=== PATIENT | female | born 1975 | race Caucasian/White ===

== ENCOUNTER → 2020-12-30 14:38 | Outpatient (CLI) | payer OTHER, SELFPAY ==
[2021-01-03 12:37] LABS: HPV APTIMA, High Risk Negative (Negative)
== END ==
PROVIDERS: PCP Family Medicine; Visit Provider Obstetrics & Gynecology
DX: Z12.4 Encounter for screening for malignant neoplasm of cervix (principal)
CPT/HCPCS: 87624; 88175; G0145

== ENCOUNTER → 2021-03-10 08:44 | Outpatient (CLI) | payer OTHER, SELFPAY ==
[2021-03-10 10:40] LABS: Cholesterol 145 mg/dL (200); High Density Lipoprotein 59 mg/dL; Triglycerides 53 mg/dL; Very Low Density Lipoprotein 11 mg/dL (5-40)
[2021-03-12 16:10] LABS: LDL, Direct 120295 78 mg/dL (0-99)
== END ==
PROVIDERS: PCP Family Medicine; Referring Provider Dermatology; Visit Provider Dermatology
DX: H02.64 Xanthelasma of left upper eyelid (principal); H02.61 Xanthelasma of right upper eyelid; H02.65 Xanthelasma of left lower eyelid; H02.62 Xanthelasma of right lower eyelid
CPT/HCPCS: 36415; 80061; 83721

== ENCOUNTER → 2021-04-09 08:27 | Outpatient (CLI) | payer OTHER, SELFPAY ==
[2021-04-09 10:33] LABS: Glucose 119 mg/dL (74-106); Thyroid Stim Hormone (TSH) 1.93 uIU/mL (0.358-3.74)
== END ==
PROVIDERS: PCP Family Medicine; Referring Provider Family Medicine; Visit Provider Family Medicine
DX: Z13.1 Encounter for screening for diabetes mellitus (principal); Z13.29 Encounter for screening for other suspected endocrine disorder
CPT/HCPCS: 36415; 82947; 84443

== ENCOUNTER 2024-10-25 07:14 | Day surgery (SDC) | payer OTHER, SELFPAY ==
[2024-10-25] VITALS (9 sets, daily range): BP systolic 103–124; BP diastolic 69–80; PULSE 60–83; RESP 16; TEMP 35.9–36.7; O2SAT 96–99; BMI 29.5
--- NOTE | 2024-10-25 07:23 | H&P.OPEN ---
[facility] - General General Date of Service: 10/25/24 HPI Narrative ZANDRA LORD, is a 49 F who presents for screening colonoscopy. Patient never had previous colonoscopy. Patient's paternal uncle diagnosed colon cancer age 64. Patient denies any chronic abdominal pain/nausea/vomiting/reflux. Patient has bowel movements daily denies any blood. 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 Smoking Status: Never smoker alcohol intake: current alcohol intake frequency: a few times a week Alcohol type: beer and wine substance use type: does not use Past Medical/Surgical History Planned Operation Planned Operative Procedure(s): COLONOSCOPY-OA Previous Hospitalizations/Surgeries HX Hospitalizations: No Any Problems With Anesthesia: No You/Your Family Experience Fever (Hyperthermia) With Anes: No Cholinesterase deficiency: No Cardiovascular Hx Hypertension: No Respiratory Hx Sleep Apnea: No Hx Respiratory Tract Infection/Cold (presently): No Do You Snore Loudly (louder than talking or can be heard): No Do You Often Feel Tired/ Fatigued/ Sleepy Dring Daytime?: No Has Anyone Observed You Stop Breathing During Sleep?: No Result (for STOP score): Negative Smoking Status: Never smoker Neurological Does patient have nerve stimulator: No Reproduction : No Allergies No Known Allergies Allergy (Verified 10/23/24 15:16) Discharge Is Pt Admitted From a [facility], or a [facility]: No After D/C, Where Do you Plan to Go: Return Home Physical Exam Const alert, oriented x3 and no apparent distress HEENT normocephalic and head/scalp atraumatic Resp normal respiratory effort Cardio regular rate GI soft to palpation and non-tender; Negative for non-distended Palpation: Negative for guarding Extremity no clubbing, cyanosis or edema Skin no rashes or lesions noted Neuro CN's II-XII intact bilaterally Psych mental status grossly normal Assessment & Plan Assessment/Plan (1) Encounter for screening for malignant neoplasm of colon: Surgery Risks - Colonoscopy I discussed with the patient the risks of the procedure: Yes Risks Include but are not Limited To: Risks include but are not limited to: Bleeding, perforation requiring further surgery, inability to complete colonoscopy requiring barium enema.
[2024-10-25 07:40] LABS: Internal QC Validated? YES +Cl - CLEAR BKGD
[2024-10-25 07:44] LABS: Pregnancy, Urine Negative Negative; Record Kit Lot#,Urine Preg 856586
--- NOTE | 2024-10-25 07:58 | PRE.ANES_ITS ---
ASA Classification* ASA Classification ASA Classification: 2 Assessment & Plan Anesthesia* Anesthesia Assessment Anesthesia Assessment: Discussed sedation and/or anesthesia options, risks, benefits, and alternatives with patient/parents/legal guardian/POA. Questions invited. The patient/parents/legal guardian/POA seems to understand and agrees to proceed with anesthesia plan. Reviewed the physical assessment, medical history, allergy history and patient home medications list prior to surgery/procedure/anesthetic and documented any changes. Performed airway and anesthesia risk assessments. Anesthesia Type Anesthesia Type: MAC Anesthesia Focused Assessment* Temperature: 98.0 F Pulse Rate: 76 Blood Pressure: 124/80 Respiratory Rate: 16 Pulse Ox: 99 Airway Assessment Mouth opens: >3 cm Mallampati Score: II Focused Labs Anesthesia Preop lab: CBC WBC 5.2 K/mm3 (4.4-11.0) 09/17/17 11:09/17/17 RBC 4.55 M/mm3 (4.2-5.4) 09/17/17 11:09/17/17 Hgb 12.4 g/dl (12.0-15.0) 09/17/17 11:09/17/17 Hct 38.2 % (37-47) 09/17/17 11:09/17/17 Plt Count 289 K/mm3 (150-450) 09/17/17 11:09/17/17 CHEMISTRY Potassium 4.3 mmol/L (3.5-5.1) 09/17/17 11:09/17/17 Sodium 141 mmol/L (136-145) 09/17/17 11:09/17/17 Magnesium 2.0 mg/dL (1.8-2.4) 09/17/17 11:09/17/17 BUN 15 mg/dL (7-18) 09/17/17 11:09/17/17 Creatinine 0.77 mg/dL (0.55-1.02) 09/17/17 11:09/17/17 Glucose 119 mg/dL (74-106) H 04/09/21 08:29 04/09/21 TSH 1.93 uIU/mL (0.358-3.74) 04/09/21 08:29 COAG Urine Test Negative Negative 10/25/24 07:25 10/25/24 Pre-Assessment Diagnosis/Proposed Procedure Planned Operative Procedure(s): COLONOSCOPY-OA Anesthesia History 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 When Was Last Pacemaker Check QUESTION #4 FULL TEXT: You/Your Family Experience fever (hyperthermia) with Anesthesia Last Oral Intake Last Oral intake: Last Oral Intake NPO since 04:15 10/25/24 07:37 Meds taken in AM with sips of No 10/25/24 07:37 water? Meds patient instructed to take am of surgery PONV PONV - civil engineering drafter: PONV - civil engineering drafter Female Yes 10/23/24 15:21 HX of Motion Sickness No 10/23/24 15:21 HX of N/V After Surgery No 10/23/24 15:21 Non-Smoker Yes 10/23/24 15:21 Duration of Surgery greater No 10/23/24 15:21 than 60 minutes Number of Risk Factors 2 10/23/24 15:21 PONV Score Moderate Risk 10/23/24 15:21 Height & Weight Height & Weight: Anesthesia: Height & Weight Height 5 ft 11 in 10/25/24 07:37 Weight: 96 kg 10/25/24 07:37 Body Mass Index (BMI) 29.5 10/25/24 07:37 Respiratory Assessment Respiratory Assessment - civil engineering drafter: Respiratory Tract Infection Hx - civil engineering drafter Hx Respiratory Tract Infection No 10/25/24 07:24 STOP Sleep Apnea STOP Sleep Apnea - civil engineering drafter: STOP Sleep Apnea - civil engineering drafter Hx Hypertension No 10/25/24 07:24 Hx Sleep Apnea No 10/25/24 07:24 CPAP BIPAP Do you snore loudly (louder No 10/25/24 07:24 than talking or can be heard Do you often feel tired/ No 10/25/24 07:24 fatigued/ sleepy during daytime? Has anyone observed you stop No 10/25/24 07:24 breathing during sleep? STOP Results Negative 10/25/24 07:35 QUESTION #5 FULL TEXT : Do you snore loudly (louder than talking or can be heard through closed doors)? 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 Specify any problems Hx of Preganancy in last 3 No 10/23/24 15:21 Months Nurse Filling Out Transfusion VCHRISTIN 10/23/24 15:21 & Questions: Date: 10/23/24 10/23/24 15:21 Time: 15:22 10/23/24 15:21 Patient unable to answer at this time (ie. 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
--- NOTE | 2024-10-25 08:30 | COLBX_PTH ---
PATIENT: ZANDRA LORD LOC: EN U#:[id number] AGE/SX: 49/F ROOM: RE10/25/[address]: Dr. Chelsie Izquierdo MD : 1975 BED: DIS: 10/25/2024 SPEC #: [id number] RECD: 10/25/24 11:15 STATUS: DANIEL REKenny #: [id number] CLEO: 10/25/24 08:[address]: Chelsie Izquierdo DEPT: SURGICAL PATHOLOGY RECD BY: Reshma Carlisle ENTERED: 10/25/24 11:54 SP TYPE: COLON BX OTHR DR: Dr. Alexandre Giraldo MD Tissues: Sigmoid colon biopsy Procedures: Surgery Specimen Level IV HEADER OPERATION: Colonoscopy with polyp biopsy PRE-OP DIAGNOSIS: Encounter for screening for malignant neoplasm of colon TISSUE SUBMITTED: Sigmoid polyp biopsy MICROSCOPIC DIAGNOSIS Sigmoid polyp, biopsy: A fragment of colonic mucosa, no pathologic diagnosis. SJ.mr 10/26/2024 MICROSCOPIC DESCRIPTION Slides are reviewed. GROSS DESCRIPTION Received in fixative is one container labeled with the patient's name and designated Sigmoid polyp biopsy. The specimen consists of one irregular fragment of light briceño soft tissue that measures 0.2 x 0.2 x 0.1 cm. The specimen is totally submitted in one cassette. 10/25/2024 TC:4 CPT:43122
--- NOTE | 2024-10-25 09:21 | OP.CCLET_ITS ---
10/25/2024 Gian Giraldo [address] [place] [address] Re : Colonoscopy procedure for Naomi Kimballholz Dear Dr. Giraldo This procedure was performed on Friday, October 25, 2024. My impressions and recommendations are as follows: Impressions : - One less than 5 mm polyp in the sigmoid colon. Biopsied. - The examination was otherwise normal on direct and retroflexion views. Recommendations : - Discharge patient to home. - Resume previous diet. - Continue present medications. - Await pathology results. - Repeat colonoscopy in 5-10 years for surveillance based on pathology results. My findings are described in the full procedure note, which is enclosed. If I can be of further assistance, please feel free to contact me at Doctor phone number(s): , Work: . Sincerely, MD Chelsie Pabon MD 10/25/2024 9:21:10 AM This report has been signed electronically.
--- NOTE | 2024-10-25 09:21 | OP.COLON_ITS ---
Patient Name: Naomi Chen Procedure Date: 10/25/2024 8:46 AM Date of : 1975 Age: 49 Procedure: Colonoscopy Indications: Screening for colorectal malignant neoplasm Providers: Chelsie Izquierdo MD Referring MD: Gian Giraldo Medicines: Monitored Anesthesia Care Patient Profile: This is a 49 year old female. Last Colonoscopy: none. The patient's first colonoscopy is today. Complications: No immediate complications. Procedure: Pre-Anesthesia Assessment: - Prior to the procedure, a History and Physical was performed, and patient medications and allergies were reviewed. The patient's tolerance of previous anesthesia was also reviewed. The risks and benefits of the procedure and the sedation options and risks were discussed with the patient. All questions were answered, and informed consent was obtained. Prior Anticoagulants: The patient has taken no anticoagulant or antiplatelet agents. ASA Grade Assessment: Per anesthesia. After reviewing the risks and benefits, the patient was deemed in satisfactory condition to undergo the procedure. After I obtained informed consent, the scope was passed under direct vision. Throughout the procedure, the patient's blood pressure, pulse, and oxygen saturations were monitored continuously. The colonoscope was introduced through the anus and advanced to the cecum, identified by the appendiceal orifice, ileocecal valve and palpation. The colonoscopy was performed without difficulty. The patient tolerated the procedure well. The quality of the bowel preparation was good. Scope In: 8:56:23 AM Scope Withdrawal Time 0 hours 13 minutes 52 seconds Scope Out: 9:17:30 AM Total Procedure Duration Time 0 hours 21 minutes 7 seconds Findings: The perianal and digital rectal examinations were normal. A less than 5 mm polyp was found in the sigmoid colon. The polyp was sessile. Biopsies were taken with a cold forceps for histology. The exam was otherwise without abnormality on direct and retroflexion views. Impression: - One less than 5 mm polyp in the sigmoid colon. Biopsied. - The examination was otherwise normal on direct and retroflexion views. Recommendation: - Discharge patient to home. - Resume previous diet. - Continue present medications. - Await pathology results. - Repeat colonoscopy in 5-10 years for surveillance based on pathology results. Procedure Code(s): --- Professional --- 52506, PT, Colonoscopy, flexible; with biopsy, single or multiple Diagnosis Code(s): --- Professional --- Z12.11, Encounter for screening for malignant neoplasm of colon D12.5, Benign neoplasm of sigmoid colon CPT copyright 2021 [employer]. All rights reserved. The codes documented in this report are preliminary and upon retail service specialist review may be revised to meet current compliance requirements. MD Chelsie Pabon MD 10/25/2024 9:21:10 AM This report has been signed electronically. Number of Addenda: 0 Note Initiated On: 10/25/2024 8:46 AM
--- NOTE | 2024-10-25 09:24 | PCM.POST.ANE ---
Anesthesia: Postop Eval I Current Vital Signs Temperature: 97 F Pulse Rate: 83 Blood Pressure: 103/74 Respiratory Rate: 16 Pulse Ox: 98 Oxygen Delivery Method: Room Air Assessment Airway patent: Yes Spontaneous unlabored respirations: Yes Mental status: Asleep nausea: No Vomiting: No Anesthesia Complication: No Fluid Hydration Crystalloid volume administer (ml): 40 Total IV fluid infused: 40 Progress Note Anesthesia document: Postop Eval 1 completed: Yes
--- NOTE | 2024-10-25 09:57 | PCM.POSTANE2 ---
Anesthesia Postop Eval I Sum Postop Eval Completion status Anesthesia document: Postop Eval 1 completed: Yes Anesthesia Postop Eval I Summary Anesthesia Postop Eval I Summary: Anesthesia Postop Eval I: Assessment Summary Airway patent Yes 10/25/24 09:25 [email or web address] Spontaneous unlabored Yes 10/25/24 09:25 [email or web address] respirations Mental status Asleep 10/25/24 09:25 [email or web address] nausea No 10/25/24 09:25 [email or web address] Vomiting No 10/25/24 09:25 [email or web address] Anesthesia Postop Eval I: Fluid Summary Crystalloid volume administer 40 10/25/24 09:25 [email or web address] (ml) Colloids volume administered ( ml) Blood Product volume administered (ml) Total IV fluid infused 40 10/25/24 09:25 [email or web address] Anesthesia Postop Eval I: Summary Notes Anesthesia Complication No 10/25/24 09:25 [email or web address] Anesthesia Complication Comment: Post-operative progress note Anesthesia: Postop Eval II Evaluation Mental status: Awake Pain Level: 0 nausea: No Vomiting: No
== END 2024-10-25 10:01 | disposition home or self-care (01) ==
LOC: EN 07:15 → AC 07:16
PROVIDERS: Anesthesiology; PCP Family Medicine; Referring Provider Family Medicine; Visit Provider Surgery
PROC: 0DJD8ZZ Inspection of Lower Intestinal Tract, Via Natural or Artificial Opening Endoscopic (ICD-10-PCS; CPT 45378; principal; 2024-10-25 08:25)
DX: Z12.11 Encounter for screening for malignant neoplasm of colon (principal); D12.5 Benign neoplasm of sigmoid colon; Z80.0 Family history of malignant neoplasm of digestive organs
CPT/HCPCS: 45380; 81025; 88305; A4216; J2405

== ENCOUNTER → 2025-05-21 | Outpatient (CLI) | payer OTHER, SELFPAY ==
--- NOTE | 2025-05-21 07:30 | BI_ITS ---
EXAM: SCRN MAMM (CAD)W/IRINA BILAT DATE: 05/21/2025 CLINICAL HISTORY: F, Age 50 y/o , ANNUAL EXAM Patient has a maternal aunt and paternal aunt who were diagnosed with breast cancer TECHNIQUE: Procedure Code: [id number] Modality: MG Procedure: SCRN MAMM (CAD)W/IRINA BILAT COMPARISON: None. This is a baseline study. FINDINGS: TISSUE DENSITY: There are scattered areas of fibroglandular density. Bilateral Breast Mammographic Findings: No significant masses, calcifications or other abnormalities are identified. BI/SCRN MAMM (CAD)W/IRINA BILAT IMPRESSION: Negative screening mammogram OVERALL FINAL ASSESSMENT BI-RADS 1: NEGATIVE. RECOMMENDATION: Routine annual follow-up in 1 Year A letter with findings and recommendations will be mailed to the patient. Reading Location: [id number]
== END | disposition home or self-care (01) ==
LOC: OPBI 07:32
PROVIDERS: PCP Family Medicine; Referring Provider Nurse Practitioner Family; Visit Provider Nurse Practitioner Family
DX: Z12.31 Encounter for screening mammogram for malignant neoplasm of breast (principal)
CPT/HCPCS: 77063; 77067